=== PATIENT | female | born 1965 | race Caucasian/White ===

== ENCOUNTER 2016-12-05 06:17 | Day surgery (SDC) | payer OTHER ==
[2016-12-04 11:22] LABS: HEMATOCRIT 41.7 % (36.0-48.0); HEMOGLOBIN 13.8 g/dL (12-16); MCH 29.6 pg (26.0-34.0); MCHC 33.1 g/dL (31.0-37.0); MCV 89.3 fL (80.0-100.0); MEAN PLATELET VOLUME 8.6 fL (7.4-10.4); RBC 4.67 10x6/uL (4.00-5.40); RDW 13.4 % (11.5-14.5); WBC 10.1 10x3/uL (4.8-10.8)
[2016-12-04 11:35] LABS: ANION GAP 12.2 mmol/L (8-16); CALCIUM 8.7 mg/dL (8.5-10.1); CARBON DIOXIDE 29.5 mmol/L (21.0-32.0); CREATININE - SERUM 1.6 mg/dL (0.6-1.3); POTASSIUM - SERUM 3.7 mmol/L (3.5-5.1)
[~2016-12-05] VITALS: Ht 160 cm; Wt 83.0 kg
[2016-12-05 06:03] VITALS: BP 109/67; Ht 160 cm; Wt 83.0 kg
[~2016-12-05 06:17] MED LIST: GLYBURIDE1.25 MG PO; LISINOPRIL-HCTZ1 TA2 PO; LISINOPRIL10 MG PO
[2016-12-05] MEDS ORDERED: NORCO 7.5/325 T1 TA1 PO (07:57)
--- NOTE | 2016-12-05 11:49 | NUR ---
0930 IV DC WITH CATHER TIP INTACT
--- NOTE | 2016-12-16 12:19 | OP ---
PATIENT NAME: ROGE GIRON MEDICAL RECORD: [id number] :63 LOCATION:[facility] ADMISSION DATE: SURGEON: IDA DOMINGUEZ MD DATE OF OPERATION: 12/05/2016 PREOPERATIVE DIAGNOSIS: Right knee medial meniscus tear. POSTOPERATIVE DIAGNOSES: Right knee medial meniscus tear plus partial anterior cruciate ligament tear. PROCEDURE PERFORMED: Right knee partial medial meniscectomy. SURGEON: Hang Dominguez MD ANESTHESIA: General. CONDITION: She tolerated the procedure well, was transferred to recovery room in stable condition at termination of the procedure. INDICATIONS: This is a 51-year-old female, who has been having pain in her knee. She had findings consistent with a tear. We discussed the options. She wanted to go and proceed with arthroscopy. We discussed risks, benefits, and alternatives. She understood and wished to proceed. OPERATIVE REPORT: The patient was taken to the operating room and placed in supine position. General anesthesia was obtained. Right knee was confirmed to be the correct knee. She did receive Ancef per protocol. Procedure was begun by marking out portal sites and injecting them with 0.25% Marcaine with epinephrine. I then established an anterior lateral portal for the scope and inflow and superior medial portal for the outflow. The knee was then inspected with the patellofemoral joint which have overall looked very good. No lesions were noted. Dropping down the medial gutter into the medial joint line, it was noted clearly that she had a horizontal cleavage tear posteriorly. I did establish an anterior medial portal under direct visualization of this juncture. I then probed this area and ultimately elected to remove the inferior leaf of the tear. This was cleaned up with a shaver as well. I then moved to the notch, I did have what appeared to be an old partial ACL tear, but did not have any significant instability. Therefore, this was left alone. Placing in a molttk-dx-ovbj position and checking laterally, she had a very clean-appearing lateral joint. I left this area alone as well. I am back to the pouch and collected the small pieces that had accumulated there and brought the case to a close. She was awakened and transferred to recovery room in stable condition, having tolerated the procedure well. TRANSINT:[id number] Voice Confirmation ID: [id number] DOCUMENT ID: [id number] IDA DOMINGUEZ MD at 1219 CC: [id number] DICTATION DATE: 12/05/16 0802 [facility] ALL ROUND: 12/05/16 1713 [facility] 12/05/16 [place] [id number] [place] [address]
== END 2016-12-05 10:00 | disposition home or self-care (01) ==
LOC: D.OPS 06:17 → D.PAN 07:00 → D.OPS 07:30 → D.PAN 07:40 → D.OPS 10:00
PROVIDERS: Anesthesiology
DX: S83.241A Other tear of medial meniscus, current injury, right knee, initial encounter (principal); S83.511A Sprain of anterior cruciate ligament of right knee, initial encounter

== ENCOUNTER 2017-03-06 10:24 | Inpatient (IN) | payer OTHER ==
[~2017-03-06] VITALS: Ht 160 cm; Wt 82.4 kg
--- NOTE | 2017-03-06 00:15 | NUR ---
NPO AFTER MIDNIGHT FOR US OF ABD ORDER FOR .
[~2017-03-06 10:24] MED LIST changes: +NORCO 7.5/325 T1 TA1 PO
[2017-03-06 13:40] LABS: BASOPHILS 0.2 % (0-2); EOSINOPHILS 1.4 % (0-7); HEMATOCRIT 40.9 % (36.0-48.0); HEMOGLOBIN 13.4 g/dL (12-16); LYMPHOCYTES 36.4 % (15-50); MCH 29.3 pg (26.0-34.0); MCHC 32.8 g/dL (31.0-37.0); MCV 89.3 fL (80.0-100.0); MEAN PLATELET VOLUME 8.6 fL (7.4-10.4); MONOCYTES 7.9 % (2-11); NEUTROPHILS 53.1 % (40-80); PLATELET COUNT 189 10x3/uL (130-400); RBC 4.58 10x6/uL (4.00-5.40); RDW 12.7 % (11.5-14.5); WBC 8.6 10x3/uL (4.8-10.8)
[2017-03-06 14:03] LABS: ALBUMIN 3.8 g/dL (3.4-5.0); ANION GAP 13.2 mmol/L (8-16); BILIRUBIN - TOTAL 0.4 mg/dL (0.2-1.3); CALCIUM 9.2 mg/dL (8.5-10.1); CARBON DIOXIDE 29.6 mmol/L (21.0-32.0); CREATININE - SERUM 0.9 mg/dL (0.6-1.3); POTASSIUM - SERUM 3.8 mmol/L (3.5-5.1); PROTEIN - SERUM 7.6 g/dL (6.4-8.2)
[2017-03-06 14:12] LABS: APPEARANCE CLEAR (CLEAR); COLOR YELLOW (YELLOW); SPECIFIC GRAVITY 1.005 (1.005-1.020)
[2017-03-06 14:13] LABS: BILIRUBIN NEGATIVE (NEGATIVE); GLUCOSE NEGATIVE (NEGATIVE); KETONE NEGATIVE (NEGATIVE); LEUKOCYTE ESTERASE NEGATIVE (NEGATIVE); NITRITE POSITIVE (NEGATIVE); PROTEIN NEGATIVE (NEGATIVE); UROBILINOGEN NORMAL (NORMAL)
[2017-03-06 14:14] LABS: BACTERIA FEW /hpf (NONE SEEN); EPITHELIAL CELLS RARE /hpf (0-5); RED CELLS - URINE OCC /hpf (0-5); WHITE CELLS - URINE OCC /hpf (0-5)
[2017-03-06 19:00] VITALS: BP 124/68
--- NOTE | 2017-03-06 19:15 | NUR ---
REC REPORT, ASSUMED CARE OF PATIENT. ALERT/ORIENTED X 4. DENIES PAIN OR ANY NEEDS. IV IN R FA INTACT SL. REVIEWED MEDICATIONS WITH HER. ORIENTED TO ROOM AND CALL LIGHT.
[2017-03-06] MEDS ORDERED: PHENAZOPYRIDIN200 MG PO (19:34)
[2017-03-06] MEDS ORDERED: DIFLUCAN200 MG PO (19:35)
--- NOTE | 2017-03-06 23:03 | NUR ---
CHECKED BS AT 222. REFUSED INSULIN. STATING "I JUST HAD DINNER AND JUICE, I DO NOT TAKE INSULIN AT HOME, LET'S RECHECK IT IN A FEW HOURS".
[2017-03-07] VITALS (7 sets, daily range): BP systolic 90–124; BP diastolic 54–68; Ht 160 cm; Wt 82.4 kg
--- NOTE | 2017-03-07 01:17 | NUR ---
RESTING QUIETLY WITH EYES CLOSED. RR EVEN U/L. NO S/S OF PAIN OR DISCOMFORT. BED IS LOW WITH SR UP X2. CALL LIGHT IN REACH.
--- NOTE | 2017-03-07 04:30 | NUR ---
CHECKED BLOOD SUGAR AT 131 PER REQUEST. NO OTHER NEEDS VOICED.
[2017-03-07 05:38] LABS: BASOPHILS 0.3 % (0-2); EOSINOPHILS 2.2 % (0-7); HEMATOCRIT 38.5 % (36.0-48.0); HEMOGLOBIN 12.7 g/dL (12-16); IMMATURE GRANULOCYTES 0.7 % (0-5); MCH 29.2 pg (26.0-34.0); MCV 88.5 fL (80.0-100.0); MEAN PLATELET VOLUME 9.1 fL (7.4-10.4); MONOCYTES 8.8 % (2-11); PLATELET COUNT 172 10x3/uL (130-400); RBC 4.35 10x6/uL (4.00-5.40); RDW 12.6 % (11.5-14.5); WBC 7.2 10x3/uL (4.8-10.8)
[2017-03-07 05:51] LABS: HEMOGLOBIN A1C 6.7 % (4.8-6.0)
[2017-03-07 05:52] LABS: ALKALINE PHOSPHATASE 77 U/L (46-116); ALT (SGPT) 38 U/L (10-68); BILIRUBIN - TOTAL 0.17 mg/dL (0.2-1.3); CALC OSMOLALITY 280 mosm/kg (275-300); CALCIUM 8.3 mg/dL (8.5-10.1); CARBON DIOXIDE 24.4 mmol/L (21.0-32.0); CHLORIDE - SERUM 104 mmol/L (98-107); CREATININE - SERUM 0.8 mg/dL (0.6-1.3); POTASSIUM - SERUM 4.2 mmol/L (3.5-5.1); PROTEIN - SERUM 6.3 g/dL (6.4-8.2); SODIUM 138 mmol/L (136-145); THYROID STIMULATING HORMONE 2.81 uIU/mL (0.36-3.74); UREA NITROGEN 15 mg/dL (7-18); eGFR NON AFRICAN AMERICAN 79 mL/min (90-120)
[2017-03-07 05:53] LABS: GLUCOSE 163 mg/dL (74-106)
--- NOTE | 2017-03-07 07:50 | NUR ---
AM ROUNDS - PT IN BED. AWAKE AND ALERT. RIGHT FA, NS AT 75. PT IS ON RA. NPO AT THIS TIME. UP AD JE. NO NEEDS AT THIS TIME. WILL CONTINUE TO MONITOR
--- NOTE | 2017-03-07 19:30 | NUR ---
SITTING UP IN BED, AAOX3, SKIN WARM AND DRY, RESP UNLABORED, IV PATENT TO RIGHT FOREARM, NO DISTRESS NOTED
[2017-03-08 00:09] VITALS: BP 121/43
[2017-03-08 04:15] VITALS: BP 106/60
[2017-03-08 06:10] LABS: BASOPHILS 0.1 % (0-2); EOSINOPHILS 1.5 % (0-7); HEMATOCRIT 39.7 % (36.0-48.0); HEMOGLOBIN 13.1 g/dL (12-16); IMMATURE GRANULOCYTES 0.8 % (0-5); LYMPHOCYTES 41.2 % (15-50); MCH 29.4 pg (26.0-34.0); MEAN PLATELET VOLUME 8.5 fL (7.4-10.4); MONOCYTES 8.1 % (2-11); NEUTROPHILS 48.3 % (40-80); RBC 4.46 10x6/uL (4.00-5.40); RDW 12.5 % (11.5-14.5); WBC 7.3 10x3/uL (4.8-10.8)
[2017-03-08 06:11] LABS: PLATELET COUNT 219 10x3/uL (130-400)
[2017-03-08 06:31] LABS: ALBUMIN 3.1 g/dL (3.4-5.0); ANION GAP 12.4 mmol/L (8-16); BILIRUBIN - TOTAL 0.3 mg/dL (0.2-1.3); CALCIUM 8.8 mg/dL (8.5-10.1); CARBON DIOXIDE 25.8 mmol/L (21.0-32.0); CREATININE - SERUM 0.9 mg/dL (0.6-1.3); POTASSIUM - SERUM 4.2 mmol/L (3.5-5.1); PROTEIN - SERUM 6.7 g/dL (6.4-8.2)
--- NOTE | 2017-03-08 07:05 | NUR ---
RECEIVED REPORT. ASSUMED CARE OF PATIENT. ALERT/ORIENTED. AWAKE WITH ATTENTION TOWARD VIDEO AT BEDSIDE. COMPLAINS OF PAIN TO BACK AND PELVIS AREA. STATES IS STILL MODI DURING URINATION. IV FLUIDS INFUSING ORDERED. CALL LIGHT PLACED WITHIN REACH. NO DISTRESS.
[2017-03-08 07:23] VITALS: BP 112/52
--- NOTE | 2017-03-08 07:54 | NUR ---
PLACED IN CONTACT ISOLATION AT THIS TIME FOR ESBL IN URINE.
--- NOTE | 2017-03-08 11:33 | NUR ---
FSBS 95. NO INSULIN COVERAGE REQUIRED. RESTING IN BED. TOLERATED AMIKACIN WELL. NO DISTRESS.
[2017-03-08 12:09] VITALS: BP 109/57
[2017-03-08 16:10] VITALS: BP 110/60
--- NOTE | 2017-03-08 16:14 | NUR ---
FSBS 84. NO INSULIN COVERAGE REQUIRED.
--- NOTE | 2017-03-08 16:30 | NUR ---
MEDICATED FOR PAIN AT THIS TIME. DENIES ANY FURTHER NEEDS. FAMILY AT BEDSIDE. CALL LIGHT WITHIN REACH. NO DISTRESS.
--- NOTE | 2017-03-08 18:57 | NUR ---
1500- 1800 DR Rocha called CM regarding progress with home IV antibiotic referral. CM spoke with the patient by phone as I was located in ICU. She has not had home IVAB previously. Has no preferred provider. CM aware patient has an order for a PICC line 03/09/17. DR Rocha received her repeat cx w/ sensitivities this pm. He has changed her IVAB. She will need 1-2 doses prior to discharge. New IVAB will be started today. DR Campa has discussed the plan with the patient. CM cannot verify preferred provider for pt's insurer over the weekend. TC to [facility] in [place]. The emergency spill response technician believe they are in-network. She will go to the office to check. Faxed referral for review. Received CB at [phone]. They are not an in-network provider. TC to [facility]. Spoke with the emergency spill response technician nurse, Jennifer, at [phone]. Faxed referral to [phone]. Jennifer or Arnaud will follow up in the Am after checking with insurer. CM advised DR Rocha of progress. Will need a specific order with agent, frequency of dosage, route and days of service. DR Rocha stated 10 days total. Pls reference his progress note.
--- NOTE | 2017-03-08 21:14 | NUR ---
REC'D. AT [facility]. OF SHIFT IN BED WATCHING TV. CONTACT ISOLATION CONTINUES.DENIES ANY DISCOMFORT. AT PRESENT TIME WILL CONTINUE TO MONITOR FOR ANY CHGES. AND FOLLOW CURRENT PLAN OF CARE
[2017-03-08 21:38] VITALS: BP 116/51
--- NOTE | 2017-03-09 00:28 | NUR ---
STROKE BELT SANDER OPERATOR AT BEDSIDE FOR VS. NEEDS ADDRESSED AT THIS TIME. CALL LIGHT IN REACH. WILL CONT TO MONITOR.
[2017-03-09 03:13] VITALS: BP 115/41
[2017-03-09 05:44] LABS: BASOPHILS 0.2 % (0-2); EOSINOPHILS 1.8 % (0-7); HEMATOCRIT 39.9 % (36.0-48.0); IMMATURE GRANULOCYTES 0.7 % (0-5); LYMPHOCYTES 43.7 % (15-50); MCH 29.2 pg (26.0-34.0); MCHC 32.6 g/dL (31.0-37.0); MCV 89.7 fL (80.0-100.0); MEAN PLATELET VOLUME 8.6 fL (7.4-10.4); MONOCYTES 6.8 % (2-11); NEUTROPHILS 46.8 % (40-80); PLATELET COUNT 240 10x3/uL (130-400); RBC 4.45 10x6/uL (4.00-5.40); RDW 12.5 % (11.5-14.5); WBC 8.4 10x3/uL (4.8-10.8)
[2017-03-09 06:08] LABS: ANION GAP 11.3 mmol/L (8-16); BILIRUBIN - TOTAL 0.28 mg/dL (0.2-1.3); CALCIUM 8.8 mg/dL (8.5-10.1); CARBON DIOXIDE 29.9 mmol/L (21.0-32.0); CREATININE - SERUM 0.9 mg/dL (0.6-1.3); POTASSIUM - SERUM 4.2 mmol/L (3.5-5.1); PROTEIN - SERUM 6.7 g/dL (6.4-8.2)
[2017-03-09 06:46] VITALS: BP 108/54
--- NOTE | 2017-03-09 08:03 | NUR ---
AM ROUNDS - PT APPEARS TO BE SLEEPING WITH EQUAL AND NON LABORED BREATHING. IV TO RIGHT FA WITH NS @ 75CC/HR/ PT IS ON CONTACT ISOLATION. WILL CONTINUE TO MONITOR
[2017-03-09 08:25] VITALS: BP 115/40
[2017-03-09 13:03] VITALS: BP 131/56
--- NOTE | 2017-03-09 13:04 | NUR ---
Patient Name: ROGE GIRON Admission Status: ER Accout number: [id number] Admission Date: 03-06-2017 : 1965 Admission Diagnosis: Attending: VIJI Current LOS: 3 Anticipated DC Date: 03-09-2017 Planned Disposition: Home Health Service Primary Insurance: [employer] PPO Discharge Planning Comments: CM met with patient to assess discharge planning/needs. Patient states her discharge plan is to return home to her home and her (Shaun) to drive her. Pt states that she has 15 steps to enter in her home with a rail. She lives with her and her step dad (Salvatore Courtney ) who she helps to take care of. Pt aware that she needs IV abx therapy for 10 days when she is discharged. She is asking what is the most economical way for her to get her IV abx. CM called Tatiana Ojeda to see what the cost would be for OPS IV abx therapy vs Home health IV abx therapy from [facility]. Krish Holm stated her cost for the abx and supplies are aprox $11.00 per day. Waiting to hear back from business office and HH agency. Pt has a midline that was put in today. CM will continue to follow and assist as needed with discharge planning and needs. PCP: Denice Pharm[facility]: [facility] [address] Occupational Therapy Teacher: Jannette Huerta * Is the patient Alert and Oriented? Yes 0 * How many steps to enter\exit or inside your home? 15 0 * PCP Dr Galdamez 0 * Pharmacy [facility] [address] 0 * Preadmission Environment Home with Family 0 * ADLs Independent 0 * Equipment Glucometer 0 * List name and contact numbers for known caregivers / representatives who currently or will assist patient after discharge: Shaun Giron () [phone] * Community resources currently utilized None 0 * Additional services required to return to the preadmission environment? Yes 0 * Can the patient safely return to the preadmission environment? Yes 0 * Has this patient been hospitalized within the prior 30 days at any hospital? No 0 Grand Total: 0
--- NOTE | 2017-03-09 15:31 | NUR ---
CM NOTE: Met with patient about her Outpatient IV therapy options. Pt was concerned about the cost. Abisai Ojeda with the business office stated that she would be covered 100% if she did OPS IV ABX therapy. Cherelle with [facility] states that it would cost $82.50 per visit plus $11.00 per day for medication and supplies and she thought if would take about 4 visits to teach how to do the IV abx. Explained both options to patient and she chose to do the OPS IV ABX therapy. CM explained to patient that she would need to arrive at registration at 6am then report to OPS. The OPS department would give her more instructions after her infusion. Patient states understanding. CM will continue to follow and assist if needed maranda gilbert rn
[2017-03-09 17:08] VITALS: BP 138/72
--- NOTE | 2017-03-09 18:39 | NUR ---
HOLD ON DISCHARGE UNTIL SEES PATIENT
[2017-03-09 21:27] VITALS: BP 134/67
--- NOTE | 2017-03-10 00:49 | NUR ---
NURSE ROUNDS 03/09/17 21:45 - PT AWAKE, ALERT, ORIENTED, SITTING UP IN BED, LOOKING AT TV. PT DENIES ANY NEEDS, AND IS IN NO ACUTE DISTRESS. WE DISCUSSED HER CURRENT INFECTION, I DID TEACHING ON ADDING PROBIOTICS DAILY INTO HER DIET R/T BEING ON [facility] AND STRONG ANTIBIOTICS. PT STATED THAT SHE WILL DO THAT. WE DISCUSSED ADDING YOGURT OR PO PROBIOTICS. PT IS CONCERNED THAT IT IS TAKING SO LONG TO OVERCOME HER UTI. I DID ADMINISTER THE ORDERED AMAKACIN WITHOUT THE PEAK/TROUGH RESULTS, I WAS TOLD BY LAB THEY ARE SEND OUT LABS AND WOULD NOT GO OUT UNTIL IN THE MORNING. PT STATES SHE IS STILL HAVING MODERATE DYSURIA AND SEVERE PELVIC/ABDOMINAL PAIN. WILL CONTINUE TO MONITOR CLOSELY. BED LOW, CALL LIGHT IN REACH, SIDE RAILS X 2. I DID GIVE PT A RED JELLO A BEDTIME SNACK HER FSBS WAS 110 AT THE TIME.
[2017-03-10 01:46] VITALS: BP 120/61
[2017-03-10 06:05] LABS: BASOPHILS 0.4 % (0-2); EOSINOPHILS 1.9 % (0-7); HEMATOCRIT 39.6 % (36.0-48.0); IMMATURE GRANULOCYTES 0.8 % (0-5); LYMPHOCYTES 40.8 % (15-50); MCHC 32.8 g/dL (31.0-37.0); MCV 88.2 fL (80.0-100.0); MEAN PLATELET VOLUME 8.5 fL (7.4-10.4); MONOCYTES 7.7 % (2-11); NEUTROPHILS 48.4 % (40-80); PLATELET COUNT 236 10x3/uL (130-400); RBC 4.49 10x6/uL (4.00-5.40); RDW 12.4 % (11.5-14.5); WBC 8.5 10x3/uL (4.8-10.8)
[2017-03-10 06:24] VITALS: BP 113/63
[2017-03-10 06:25] LABS: BILIRUBIN - TOTAL 0.3 mg/dL (0.2-1.3); CALCIUM 8.6 mg/dL (8.5-10.1); CARBON DIOXIDE 28.9 mmol/L (21.0-32.0); CREATININE - SERUM 0.9 mg/dL (0.6-1.3); POTASSIUM - SERUM 3.9 mmol/L (3.5-5.1); PROTEIN - SERUM 6.6 g/dL (6.4-8.2)
[2017-03-10 09:00] VITALS: BP 124/52
--- NOTE | 2017-03-10 09:23 | NUR ---
CM Note: New order sent to Arnaud at [facility] for home IV abx Edelmira Huerta RN
--- NOTE | 2017-03-10 11:23 | NUR ---
CM note: Spoke with Arnaud at [facility] explained to her that the next dose of meropenem is due at 1645. Arnaud stated that they would be able to be there for that dose and nurse teaching. Pt notified that it is all set up along with the Aubree Aguilar RN. No other CM needs at this time. Edelmira Huerta RN
--- NOTE | 2017-03-10 12:04 | NUR ---
BLOOD SUGAR OF 83, NO COVERAGE PER S/S. PROVIDED VERBAL AND WRITTEN DISCHARGE TEACHING TO PT. PT VERBALIZED UNDERSTANDING REGARDING DISCHARGE TEACHING. DENIES ANY NEEDS AT THIS TIME. WAITING ON RIDE, WILL NOTIFY NURSE WHEN RIDE GETS HERE. NAD NOTED, WILL CONTINUE TO MONITOR.
[2017-03-10 12:30] VITALS: BP 145/61
--- NOTE | 2017-03-10 12:56 | NUR ---
PT LEFT UNIT VIA WHEELCHAIR, ACCOMPANIED BY , NAD NOTED.
== END 2017-03-10 12:57 | disposition home or self-care (01) | DRG 690 ==
LOC: D.ER 10:24 → D.M2 18:31
PROVIDERS: Emergency Medicine; ADMIT Family Medicine
PROC: 05HC33Z Insertion of Infusion Device into Left Basilic Vein, Percutaneous Approach (ICD-10-PCS; principal; 2017-03-09)
PROC: B54NZZA Ultrasonography of Left Upper Extremity Veins, Guidance (ICD-10-PCS; 2017-03-09)
DX: N12 Tubulo-interstitial nephritis, not specified as acute or chronic (principal); B96.20 Unspecified Escherichia coli [E. coli] as the cause of diseases classified elsewhere; E11.65 Type 2 diabetes mellitus with hyperglycemia; I10 Essential (primary) hypertension

== ENCOUNTER → 2017-03-17 15:49 | Outpatient (CLI) | payer OTHER ==
[2017-03-07 01:41] VITALS: BMI 31.9
[~2017-03-17 15:49] MED LIST changes: +DIFLUCAN200 MG PO; +PHENAZOPYRIDIN200 MG PO
[2017-03-17 19:59] LABS: BASOPHILS 0.2 % (0-2); EOSINOPHILS 1.3 % (0-7); HEMATOCRIT 39.7 % (36.0-48.0); HEMOGLOBIN 12.9 g/dL (12-16); IMMATURE GRANULOCYTES 0.2 % (0-5); LYMPHOCYTES 37.7 % (15-50); MCH 29.2 pg (26.0-34.0); MCHC 32.5 g/dL (31.0-37.0); MCV 89.8 fL (80.0-100.0); MONOCYTES 7.3 % (2-11); NEUTROPHILS 53.3 % (40-80); PLATELET COUNT 267 10x3/uL (130-400); RBC 4.42 10x6/uL (4.00-5.40); RDW 12.9 % (11.5-14.5); WBC 8.7 10x3/uL (4.8-10.8)
[2017-03-17 20:12] LABS: CREATININE - SERUM 0.9 mg/dL (0.6-1.3)
== END | disposition home or self-care (01) ==
LOC: D.OPS 08:00 → D.LABREF 15:49
PROVIDERS: Student in an Organized Health Care Education/Training Program
DX: N39.0 Urinary tract infection, site not specified (principal); Z79.899 Other long term (current) drug therapy

== ENCOUNTER 2017-03-22 21:15 | Emergency (ER) | payer OTHER ==
[2017-03-07 01:41] VITALS: BMI 31.9
[2017-03-22 22:57] LABS: BASOPHILS 0.2 % (0-2); EOSINOPHILS 1.3 % (0-7); HEMATOCRIT 38.8 % (36.0-48.0); HEMOGLOBIN 13.1 g/dL (12-16); IMMATURE GRANULOCYTES 0.4 % (0-5); LYMPHOCYTES 35.8 % (15-50); MCH 29.8 pg (26.0-34.0); MCHC 33.8 g/dL (31.0-37.0); MCV 88.2 fL (80.0-100.0); MEAN PLATELET VOLUME 8.6 fL (7.4-10.4); MONOCYTES 9.1 % (2-11); NEUTROPHILS 53.2 % (40-80); PLATELET COUNT 239 10x3/uL (130-400); RDW 12.8 % (11.5-14.5)
[2017-03-22 23:15] LABS: ALBUMIN 3.4 g/dL (3.4-5.0); ANION GAP 12.1 mmol/L (8-16); BILIRUBIN - TOTAL 0.46 mg/dL (0.2-1.3); CALCIUM 9.3 mg/dL (8.5-10.1); CARBON DIOXIDE 29.1 mmol/L (21.0-32.0); CREATININE - SERUM 0.9 mg/dL (0.6-1.3); POTASSIUM - SERUM 4.2 mmol/L (3.5-5.1); PROTEIN - SERUM 7.2 g/dL (6.4-8.2)
== END 2017-03-23 00:09 | disposition home or self-care (01) ==
LOC: D.ER 21:15
PROVIDERS: Family Medicine
DX: M79.622 Pain in left upper arm (principal); N39.0 Urinary tract infection, site not specified; E11.9 Type 2 diabetes mellitus without complications

== ENCOUNTER → 2017-03-30 15:00 | Outpatient (CLI) | payer OTHER ==
[2017-03-07 01:41] VITALS: BMI 31.9
== END | disposition home or self-care (01) ==
LOC: D.US 15:00
DX: M25.512 Pain in left shoulder (principal)

== ENCOUNTER → 2017-08-25 17:14 | Outpatient (CLI) | payer OTHER ==
[2017-03-07 01:41] VITALS: BMI 31.9
[~2017-08-25 17:14] MED LIST changes: +COLACE100 MG PO; +FLAGYL500 MG PO; +FLORAJEN3 CAPS460 MG PO; +Levaquin PO; +PROTONIX40 MG PO
[2017-08-25 19:07] LABS: APPEARANCE CLEAR (CLEAR); BACTERIA MANY /hpf (NONE SEEN); BILIRUBIN NEGATIVE (NEGATIVE); COLOR YELLOW (YELLOW); EPITHELIAL CELLS 0-5 /hpf (0-5); GLUCOSE NEGATIVE (NEGATIVE); KETONE NEGATIVE (NEGATIVE); NITRITE POSITIVE (NEGATIVE); PROTEIN NEGATIVE (NEGATIVE); RED CELLS - URINE OCC /hpf (0-5); UROBILINOGEN NORMAL (NORMAL); WHITE CELLS - URINE 25-50 /hpf (0-5)
== END | disposition home or self-care (01) ==
LOC: D.LABREF 17:14
PROVIDERS: Student in an Organized Health Care Education/Training Program
DX: N39.0 Urinary tract infection, site not specified (principal)

== ENCOUNTER → 2017-09-09 14:01 | Outpatient (CLI) | payer OTHER ==
[2017-03-07 01:41] VITALS: BMI 31.9
[2017-09-09 15:58] LABS: APPEARANCE CLEAR (CLEAR); COLOR YELLOW (YELLOW); SPECIFIC GRAVITY 1.015 (1.005-1.020)
[2017-09-09 15:59] LABS: BILIRUBIN NEGATIVE (NEGATIVE); GLUCOSE NEGATIVE (NEGATIVE); KETONE NEGATIVE (NEGATIVE); NITRITE POSITIVE (NEGATIVE); PROTEIN NEGATIVE (NEGATIVE); UROBILINOGEN NORMAL (NORMAL)
[2017-09-09 16:00] LABS: BACTERIA MANY /hpf (NONE SEEN); EPITHELIAL CELLS 0-5 /hpf (0-5); RED CELLS - URINE OCC /hpf (0-5); WHITE CELLS - URINE 0-5 /hpf (0-5)
== END | disposition home or self-care (01) ==
LOC: D.LABREF 14:01
PROVIDERS: Student in an Organized Health Care Education/Training Program
DX: N39.0 Urinary tract infection, site not specified (principal)

== ENCOUNTER 2017-11-18 15:23 | Inpatient (IN) | payer OTHER ==
[~2017-11-18] VITALS: Ht 160 cm; Wt 69.9 kg
[~2017-11-18 15:23] MED LIST changes: -COLACE100 MG PO; -FLAGYL500 MG PO; -FLORAJEN3 CAPS460 MG PO; -Levaquin PO; -PROTONIX40 MG PO
[2017-11-18 16:08] LABS: BASOPHILS 0.2 % (0-2); EOSINOPHILS 1.6 % (0-7); HEMATOCRIT 42.3 % (36.0-48.0); HEMOGLOBIN 14.5 g/dL (12-16); IMMATURE GRANULOCYTES 0.3 % (0-5); LYMPHOCYTES 30.2 % (15-50); MCHC 34.3 g/dL (31.0-37.0); MCV 84.6 fL (80.0-100.0); MEAN PLATELET VOLUME 8.6 fL (7.4-10.4); MONOCYTES 7.1 % (2-11); NEUTROPHILS 60.6 % (40-80); PLATELET COUNT 235 10x3/uL (130-400); RDW 13.1 % (11.5-14.5); WBC 11.8 10x3/uL (4.8-10.8)
[2017-11-18 16:51] LABS: ALBUMIN 3.6 g/dL (3.4-5.0); ANION GAP 14.7 mmol/L (8-16); BILIRUBIN - TOTAL 0.41 mg/dL (0.2-1.3); CALCIUM 8.5 mg/dL (8.5-10.1); CARBON DIOXIDE 25.4 mmol/L (21.0-32.0); POTASSIUM - SERUM 4.1 mmol/L (3.5-5.1); PROTEIN - SERUM 7.3 g/dL (6.4-8.2)
[2017-11-18 17:06] LABS: APPEARANCE CLEAR (CLEAR); BILIRUBIN NEGATIVE (NEGATIVE); COLOR YELLOW (YELLOW); GLUCOSE NEGATIVE (NEGATIVE); KETONE NEGATIVE (NEGATIVE); NITRITE NEGATIVE (NEGATIVE); PROTEIN NEGATIVE (NEGATIVE); UROBILINOGEN NORMAL (NORMAL)
[2017-11-18 17:07] LABS: BACTERIA FEW /hpf (NONE SEEN); EPITHELIAL CELLS 0-5 /hpf (0-5); RED CELLS - URINE OCC /hpf (0-5); WHITE CELLS - URINE 0-5 /hpf (0-5)
[2017-11-18 20:48] LABS: ERYTHROCYTE SEDIMENTATION RATE 25 mm/hr (0-30)
[2017-11-18 22:37] VITALS: BP 109/73; BMI 27.3
[2017-11-19 04:00] VITALS: BP 115/63
[2017-11-19 05:48] LABS: BASOPHILS 0.2 % (0-2); EOSINOPHILS 1.6 % (0-7); HEMOGLOBIN 12.8 g/dL (12-16); IMMATURE GRANULOCYTES 0.3 % (0-5); LYMPHOCYTES 33.6 % (15-50); MCH 28.1 pg (26.0-34.0); MCHC 32.8 g/dL (31.0-37.0); MCV 85.7 fL (80.0-100.0); MEAN PLATELET VOLUME 8.5 fL (7.4-10.4); MONOCYTES 7.7 % (2-11); NEUTROPHILS 56.6 % (40-80); PLATELET COUNT 209 10x3/uL (130-400); RBC 4.55 10x6/uL (4.00-5.40); RDW 13.2 % (11.5-14.5); WBC 8.9 10x3/uL (4.8-10.8)
[2017-11-19 06:13] LABS: CALC OSMOLALITY 278 mosm/kg (275-300); CALCIUM 8.2 mg/dL (8.5-10.1); CARBON DIOXIDE 26.7 mmol/L (21.0-32.0); CHLORIDE - SERUM 104 mmol/L (98-107); CREATININE - SERUM 0.8 mg/dL (0.6-1.3); GLUCOSE 86 mg/dL (74-106); POTASSIUM - SERUM 4.1 mmol/L (3.5-5.1); SODIUM 140 mmol/L (136-145); UREA NITROGEN 15 mg/dL (7-18); eGFR NON AFRICAN AMERICAN 79 mL/min (90-120)
[2017-11-19 07:59] VITALS: BP 131/62
[2017-11-19 12:31] VITALS: BP 119/61
[2017-11-19 14:46] VITALS: Ht 160 cm; Wt 69.9 kg
[2017-11-19 16:19] VITALS: BP 118/62
[2017-11-19 21:39] VITALS: BP 104/63
[2017-11-20 00:15] VITALS: BP 99/62
[2017-11-20 04:00] VITALS: BP 93/56
[2017-11-20 05:46] LABS: BASOPHILS 0.1 % (0-2); EOSINOPHILS 0.8 % (0-7); HEMATOCRIT 37.2 % (36.0-48.0); IMMATURE GRANULOCYTES 0.3 % (0-5); LYMPHOCYTES 27.5 % (15-50); MCH 27.8 pg (26.0-34.0); MCHC 32.3 g/dL (31.0-37.0); MCV 86.3 fL (80.0-100.0); MEAN PLATELET VOLUME 8.4 fL (7.4-10.4); NEUTROPHILS 60.3 % (40-80); PLATELET COUNT 199 10x3/uL (130-400); RBC 4.31 10x6/uL (4.00-5.40); RDW 13.2 % (11.5-14.5); WBC 9.2 10x3/uL (4.8-10.8)
[2017-11-20 06:14] LABS: ALBUMIN 2.8 g/dL (3.4-5.0); ANION GAP 11.6 mmol/L (8-16); BILIRUBIN - DIRECT 0.07 mg/dL (0.00-0.30); BILIRUBIN - INDIRECT 0.28 mg/dL (0.00-1.00); BILIRUBIN - TOTAL 0.35 mg/dL (0.2-1.3); CALCIUM 7.8 mg/dL (8.5-10.1); CARBON DIOXIDE 27.2 mmol/L (21.0-32.0); CREATININE - SERUM 0.9 mg/dL (0.6-1.3); POTASSIUM - SERUM 3.8 mmol/L (3.5-5.1)
[2017-11-20 08:54] VITALS: BP 107/57
[2017-11-20 11:42] VITALS: BP 121/66
[2017-11-20 16:30] VITALS: BP 117/68
[2017-11-20 23:18] VITALS: BP 104/62
[2017-11-21 02:11] VITALS: BP 138/69
[2017-11-21 04:56] VITALS: BP 124/77
[2017-11-21 05:56] LABS: HEMATOCRIT 35.3 % (36.0-48.0); HEMOGLOBIN 11.8 g/dL (12-16); LYMPHOCYTES 24.9 % (15-50); MCH 28.1 pg (26.0-34.0); MCHC 33.4 g/dL (31.0-37.0); MEAN PLATELET VOLUME 8.3 fL (7.4-10.4); NEUTROPHILS 66.2 % (40-80); PLATELET COUNT 227 10x3/uL (130-400); RDW 12.9 % (11.5-14.5); WBC 8.5 10x3/uL (4.8-10.8)
[2017-11-21 06:10] LABS: CALC OSMOLALITY 275 mosm/kg (275-300); CALCIUM 8.2 mg/dL (8.5-10.1); CARBON DIOXIDE 26.8 mmol/L (21.0-32.0); CHLORIDE - SERUM 104 mmol/L (98-107); CREATININE - SERUM 0.8 mg/dL (0.6-1.3); GLUCOSE 104 mg/dL (74-106); POTASSIUM - SERUM 3.6 mmol/L (3.5-5.1); SODIUM 139 mmol/L (136-145); eGFR NON AFRICAN AMERICAN 79 mL/min (90-120)
[2017-11-21 06:13] LABS: UREA NITROGEN 8 mg/dL (7-18)
[2017-11-21 09:24] VITALS: BP 116/64
[2017-11-21 12:48] VITALS: BP 120/64
[2017-11-21 16:10] VITALS: BP 126/58
[2017-11-21 22:20] VITALS: BP 129/69
[2017-11-22 01:15] VITALS: BP 106/48
[2017-11-22 05:05] VITALS: BP 118/63
[2017-11-22 05:33] LABS: BASOPHILS 0.1 % (0-2); EOSINOPHILS 1.6 % (0-7); HEMATOCRIT 34.2 % (36.0-48.0); HEMOGLOBIN 11.3 g/dL (12-16); IMMATURE GRANULOCYTES 0.4 % (0-5); LYMPHOCYTES 30.6 % (15-50); MCV 84.9 fL (80.0-100.0); MEAN PLATELET VOLUME 8.5 fL (7.4-10.4); MONOCYTES 8.7 % (2-11); NEUTROPHILS 58.6 % (40-80); PLATELET COUNT 204 10x3/uL (130-400); RBC 4.03 10x6/uL (4.00-5.40); WBC 8.5 10x3/uL (4.8-10.8)
[2017-11-22 05:54] LABS: CALC OSMOLALITY 276 mosm/kg (275-300); CALCIUM 8.1 mg/dL (8.5-10.1); CARBON DIOXIDE 26.3 mmol/L (21.0-32.0); CHLORIDE - SERUM 106 mmol/L (98-107); CREATININE - SERUM 0.7 mg/dL (0.6-1.3); GLUCOSE 97 mg/dL (74-106); POTASSIUM - SERUM 3.8 mmol/L (3.5-5.1); SODIUM 140 mmol/L (136-145); UREA NITROGEN 8 mg/dL (7-18); eGFR NON AFRICAN AMERICAN > 90 mL/min (90-120)
[2017-11-22 07:55] VITALS: BP 108/62
[2017-11-22 12:01] VITALS: BP 120/62
[2017-11-22 16:15] VITALS: BP 129/59
[2017-11-22 22:26] VITALS: BP 132/65
[2017-11-23 01:39] VITALS: BP 124/57
[2017-11-23 05:15] VITALS: BP 116/54
[2017-11-23 05:18] LABS: BASOPHILS 0.2 % (0-2); EOSINOPHILS 1.5 % (0-7); HEMATOCRIT 34.6 % (36.0-48.0); HEMOGLOBIN 11.6 g/dL (12-16); IMMATURE GRANULOCYTES 0.2 % (0-5); LYMPHOCYTES 27.3 % (15-50); MCH 28.3 pg (26.0-34.0); MCHC 33.5 g/dL (31.0-37.0); MCV 84.4 fL (80.0-100.0); MEAN PLATELET VOLUME 8.3 fL (7.4-10.4); MONOCYTES 7.6 % (2-11); NEUTROPHILS 63.2 % (40-80); PLATELET COUNT 239 10x3/uL (130-400); RDW 12.9 % (11.5-14.5); WBC 8.8 10x3/uL (4.8-10.8)
[2017-11-23 05:20] LABS: CALC OSMOLALITY 282 mosm/kg (275-300); CALCIUM 8.1 mg/dL (8.5-10.1); CARBON DIOXIDE 29.1 mmol/L (21.0-32.0); CHLORIDE - SERUM 105 mmol/L (98-107); CREATININE - SERUM 0.8 mg/dL (0.6-1.3); GLUCOSE 99 mg/dL (74-106); SODIUM 143 mmol/L (136-145); UREA NITROGEN 8 mg/dL (7-18); eGFR NON AFRICAN AMERICAN 79 mL/min (90-120)
[2017-11-23 08:37] VITALS: BP 140/70
[2017-11-23 11:47] VITALS: BP 130/78
[2017-11-23 14:54] LABS: APPEARANCE CLEAR (CLEAR); BACTERIA FEW /hpf (NONE SEEN); BILIRUBIN NEGATIVE (NEGATIVE); COLOR YELLOW (YELLOW); EPITHELIAL CELLS 0-5 /hpf (0-5); GLUCOSE NEGATIVE (NEGATIVE); KETONE MODERATE mg/dL (NEGATIVE); MUCUS <1+ /lpf (NONE SEEN); NITRITE NEGATIVE (NEGATIVE); PROTEIN NEGATIVE (NEGATIVE); RED CELLS - URINE 0-5 /hpf (0-5); UROBILINOGEN NORMAL (NORMAL); WHITE CELLS - URINE 0-5 /hpf (0-5)
[2017-11-23 15:50] VITALS: BP 134/76
[2017-11-23 16:38] LABS: APPEARANCE CLEAR (CLEAR); BILIRUBIN NEGATIVE (NEGATIVE); COLOR STRAW (YELLOW); GLUCOSE NEGATIVE (NEGATIVE); KETONE NEGATIVE (NEGATIVE); NITRITE NEGATIVE (NEGATIVE); PROTEIN NEGATIVE (NEGATIVE); SPECIFIC GRAVITY 1.005 (1.005-1.020); UROBILINOGEN NORMAL (NORMAL)
[2017-11-23 16:39] LABS: BACTERIA FEW /hpf (NONE SEEN); EPITHELIAL CELLS 0-5 /hpf (0-5); RED CELLS - URINE 0-5 /hpf (0-5); WHITE CELLS - URINE OCC /hpf (0-5)
[2017-11-23 18:58] VITALS: BP 128/78
[2017-11-24 00:56] VITALS: BP 132/63
[2017-11-24 05:01] LABS: BASOPHILS 0.2 % (0-2); EOSINOPHILS 1.4 % (0-7); HEMATOCRIT 34.6 % (36.0-48.0); HEMOGLOBIN 11.6 g/dL (12-16); IMMATURE GRANULOCYTES 0.2 % (0-5); LYMPHOCYTES 27.9 % (15-50); MCH 28.2 pg (26.0-34.0); MCHC 33.5 g/dL (31.0-37.0); MCV 84.2 fL (80.0-100.0); MEAN PLATELET VOLUME 8.4 fL (7.4-10.4); MONOCYTES 8.7 % (2-11); NEUTROPHILS 61.6 % (40-80); PLATELET COUNT 253 10x3/uL (130-400); RBC 4.11 10x6/uL (4.00-5.40); RDW 12.9 % (11.5-14.5); WBC 8.5 10x3/uL (4.8-10.8)
[2017-11-24 05:20] VITALS: BP 139/66
[2017-11-24 05:22] LABS: CALC OSMOLALITY 283 mosm/kg (275-300); CALCIUM 8.3 mg/dL (8.5-10.1); CARBON DIOXIDE 28.3 mmol/L (21.0-32.0); CHLORIDE - SERUM 105 mmol/L (98-107); CREATININE - SERUM 0.7 mg/dL (0.6-1.3); GLUCOSE 108 mg/dL (74-106); POTASSIUM - SERUM 3.4 mmol/L (3.5-5.1); SODIUM 143 mmol/L (136-145); UREA NITROGEN 8 mg/dL (7-18); eGFR NON AFRICAN AMERICAN > 90 mL/min (90-120)
[2017-11-24 08:59] VITALS: BP 144/65
[2017-11-24 09:17] VITALS: BP 130/86
[2017-11-24] MEDS ORDERED: FLORAJEN3 CAPS460 MG PO (10:29)
[2017-11-24] MEDS ORDERED: FLAGYL500 MG PO (10:29)
[2017-11-24] MEDS ORDERED: COLACE100 MG PO (10:29)
[2017-11-24] MEDS ORDERED: PROTONIX40 MG PO (10:29)
[2017-11-24] MEDS ORDERED: Levaquin PO (10:30)
== END 2017-11-24 12:37 | disposition home or self-care (01) | DRG 392 ==
LOC: D.ER 15:23 → D.MS 20:48
PROVIDERS: Family Medicine; Internal Medicine Nephrology; Physician Assistant
DX: A09 Infectious gastroenteritis and colitis, unspecified (principal); K52.9 Noninfective gastroenteritis and colitis, unspecified; K57.30 Diverticulosis of large intestine without perforation or abscess without bleeding; M54.30 Sciatica, unspecified side; I10 Essential (primary) hypertension; E11.9 Type 2 diabetes mellitus without complications; F32.9 Major depressive disorder, single episode, unspecified; F41.9 Anxiety disorder, unspecified; K59.00 Constipation, unspecified; T40.2X5A Adverse effect of other opioids, initial encounter

== ENCOUNTER → 2017-12-02 13:10 | Outpatient (CLI) | payer OTHER ==
[2017-11-19 14:46] VITALS: BMI 27.2
[~2017-12-02 13:10] MED LIST changes: +COLACE100 MG PO; +FLAGYL500 MG PO; +FLORAJEN3 CAPS460 MG PO; +Levaquin PO; +PROTONIX40 MG PO
== END | disposition home or self-care (01) ==
LOC: D.CT 13:10
DX: K52.9 Noninfective gastroenteritis and colitis, unspecified (principal)

== ENCOUNTER → 2018-01-06 08:33 | Outpatient (CLI) | payer OTHER ==
[2017-11-19 14:46] VITALS: BMI 27.2
== END | disposition home or self-care (01) ==
LOC: D.MRI 08:30
DX: M51.36 Other intervertebral disc degeneration, lumbar region (principal)

== ENCOUNTER 2018-03-12 08:13 | Emergency (ER) | payer OTHER ==
[2017-11-19 14:46] VITALS: BMI 27.2
== END 2018-03-12 10:45 | disposition home or self-care (01) ==
LOC: D.ER 08:13
DX: S00.81XA Abrasion of other part of head, initial encounter (principal); S80.212A Abrasion, left knee, initial encounter; S80.211A Abrasion, right knee, initial encounter; W18.31XA Fall on same level due to stepping on an object, initial encounter; Y93.89 Activity, other specified; Y92.019 Unspecified place in single-family (private) house as the place of occurrence of the external cause; S00.83XA Contusion of other part of head, initial encounter; S80.01XA Contusion of right knee, initial encounter; S50.01XA Contusion of right elbow, initial encounter; S80.02XA Contusion of left knee, initial encounter; S02.2XXA Fracture of nasal bones, initial encounter for closed fracture; I10 Essential (primary) hypertension; E11.9 Type 2 diabetes mellitus without complications

== ENCOUNTER → 2018-09-10 10:58 | Outpatient (CLI) | payer OTHER ==
[2017-11-19 14:46] VITALS: BMI 27.2
== END | disposition home or self-care (01) ==
LOC: D.MRI 08-09 10:30
DX: M25.521 Pain in right elbow (principal)

== ENCOUNTER → 2019-04-25 12:34 | Outpatient (CLI) | payer OTHER ==
[2017-11-19 14:46] VITALS: BMI 27.2
== END | disposition home or self-care (01) ==
LOC: D.MRI 12:34
PROVIDERS: ATTEND Neurological Surgery
DX: M51.36 Other intervertebral disc degeneration, lumbar region (principal); M47.816 Spondylosis without myelopathy or radiculopathy, lumbar region; M71.30 Other bursal cyst, unspecified site; M79.606 Pain in leg, unspecified